=== PATIENT | female | born 1950 | race Caucasian/White ===

== ENCOUNTER 2022-09-09 00:19 | Day surgery (SDC) | payer MEDICARE, OTHER, SELFPAY ==
--- NOTE | 2022-09-02 13:11 | PC.NURSE ---
Report to the Outpatient Waiting Room, entrance under the green pavilion located off [address], at time __929 on date . Planned Procedure Time: . Time changes happen often and if your time is changed the preop area will call you the afternoon before. - You and your visitor will be asked to self-screen and do not enter if you have any COVID symptoms. - Only one visitor is requested with a max of two and NO children visitors are allowed at this time. - The patient visitor may be requested to leave or wait in car when not with patient due to distancing restrictions. - A mask is optional within the hospital at this time. Patients may have clear liquids (water, carbonated beverages, clear teas, apple juice) until 3 hours prior to surgery with a maximum of 20 ounces. - No food from midnight until time of surgery - Infants may have breast milk until 4 hours before surgery, infant formula 6 hours prior to surgery. - Children will be allowed to drink immediately following surgery. If applicable, please bring a bottle or sippy cup to assist with drinking. Juice, water, soda, and popsicles are readily available. For infants on formula, please bring formula the day of surgery. Pacifiers are allowed. LIGHT BREAKFAST Take the following medications with a SIP of water the morning of surgery: ___ALL ROUTINE MORNING MEDICATIONS. MAY REMAIN ON PLAVIX PER DR MARLOW DO NOT STOP ANY OF YOUR OTHER PRESCRIPTION MEDICATIONS PRIOR TO SURGERY ?EXCEPT THE FOLLOWING Medications to discontinue per physician Date to take last dose Please no make-up, nail pashto, hairspray, perfume, deodorant, or body powder the day of surgery. No jewelry (including any body piercings) or valuables the day of surgery, leave them at home. Please take a shower or bath the night before, or the morning of, surgery with an antibacterial soap. Wear comfortable, loose fitting clothing. Children are encouraged to wear pajamas. - Jewelry must be removed prior to entering the operating room. Rings and piercings that are not removed may be cut off. - The hospital will not accept responsibility for valuables. - Please leave all valuables, including medications, at home the day of surgery. If you are going home after surgery, a licensed boom truck driver must drive you home. - NO public transportation without another adult if you receive anesthesia. - We recommend that an adult stay with you for 24 hours following discharge. - We also recommend that you do not drive, make important decision, drink alcoholic beverages, or take any drugs that were not prescribed by your health care provider for at least 24 hours after your discharge time. Follow any additional instructions given to you from your surgeon. If you or anyone in your household have experienced Covid symptoms in the past week, please notify your surgeon or the nurse liaison at the phone number below for possible testing. Telephone instructions given to __Patient and asked if any additional questions and then verbalized understanding. Patient advised to call surgeon office or pre surgery nurse liaison [phone] if any additional questions.
[2022-09-02 13:16] VITALS: BMI 36.8
--- NOTE | 2022-09-09 07:44 | WPDHPUPDATE1 ---
History and Physical Update Update Date/Time: 09/09/22 07:44 History and Physical has been reviewed, including an updated exam of the patient. There are NO changes in the patient's condition. Risks, benefits, and alternatives have been discussed and questions answered. Patient agrees to proceed with procedure.
[2022-09-09 09:58] VITALS: BP 96/73; PULSE 71; RESP 16; TEMP 36.7; O2SAT 100
[2022-09-09 10:20] VITALS: BP 223/98; PULSE 78; RESP 20; O2SAT 97
[2022-09-09 10:30] VITALS: BP 239/103; PULSE 78; RESP 20; O2SAT 96
[2022-09-09] MEDS: LIDO 1%/EPINEPHRINE 1:100,000 20 ML VIAL 5 ML INFILTRATE (10:35)
[2022-09-09 10:40] VITALS: BP 210/94; PULSE 78; RESP 20; O2SAT 95
[2022-09-09 10:50] VITALS: BP 222/102; PULSE 79; RESP 18; O2SAT 95
[2022-09-09 11:00] VITALS: PULSE 80; RESP 20
--- NOTE | 2022-09-09 11:02 | W.PM.PROC2 ---
Procedure Note - Detailed Date of Procedure 09/09/22 Pre-op Diagnosis bilat carpal tunnel syndrome Post-op Diagnosis Same Procedure Performed Bilateral open carpal tunnel release Surgeon Ky Sims MD Anesthesia Local Description of Procedure in the holding area the patient consented to the marking over both carpal tunnels. He was placed supine on the operating table and extremities were prepped on separate hand tables. The time-out was held and confirmed. The 2 sites were marked for the actual incision line. Each 1 was then infiltrated with 1% lidocaine with epinephrine. Surgery was begun on the left with the elevation of tourniquet to 250 mmHg. Incision was made in the palm and carried bluntly through the subcutaneous tissue to the palmar aponeurosis. This was divided with blunt and sharp dissection with scissors and the transverse carpal retinaculum was identified and incised with a 15. Blade. Under 3 point retraction the ligament was divided distally and proximally to complete the release. No unusual anatomy was noted. The skin was closed with interrupted 4-0 nylon suture. The usual bandage was applied and the tourniquet was released. Attention was then turned to the right upper extremity. The site was marked for the incision and the tourniquet inflated to 250 mmHg. The incision was made as marked and dissection was carried bluntly through the subcutaneous tissue to the palmar fascia. This and the transverse retinaculum were incised with a 15. Blade. Under 3 point retraction the ligament was divided distally and proximally to completely release it . No unusual anatomy was noted. Skin was closed with interrupted 4-0 nylon suture.. The patient was discharged from the operating room stable condition. No prescriptions were sent she has ample tramadol at home. Tourniquet Time 13 Drains No Packing No Pathology None sent Complications No immediate complications Condition Stable Disposition Same day
== END 2022-09-09 11:34 | disposition home or self-care (01) ==
PROVIDERS: PCP Physician Assistant Medical; Visit Provider Plastic Surgery
PROC: (CPT 64721; principal; 2022-09-09 10:30)
DX: G56.03 Carpal tunnel syndrome, bilateral upper limbs (principal)
CPT/HCPCS: 64721; A9270

== ENCOUNTER 2024-06-27 15:03 | Outpatient (CLI) | payer MEDICARE, OTHER, SELFPAY ==
--- NOTE | ~2024-06-27 | CT_ITS ---
EXAMINATION: CT abdomen pelvis wo con DATE: 06/27/2024 15:26 INDICATION: Calculus of kidney. TECHNIQUE: Computed tomography (CT) of the abdomen and pelvis was performed without intravenous contr ast. Automated exposure control and iterative reconstruction technique were employed. The dose-length product was 1029.11 mGy-cm. COMPARISON: Abdomen radiographs 06/26/2024 FINDINGS: The visualized portions of lung bases demonstrate mild atelectasis. No pleural effusion. Th e heart size is normal. No pericardial effusion. There is a small sliding hiatal hernia. There is dif fuse hepatic steatosis. The gallbladder, spleen, pancreas, and adrenal glands are normal. There are c ysts in the kidneys measuring up to 2.6 cm on the left. There is an 8 mm stone in left kidney. There is diverticulosis of the colon without evidence of diverticulitis. There are no dilated loops of kirt l. The appendix is not visualized. There are no pathologically enlarged lymph nodes. There is no free intraperitoneal fluid. There is a phlebolith in the right ovarian vein correlating with the radiogra phic finding. There is a total left hip arthroplasty with healed periprosthetic fracture. There is se dre right hip osteoarthritis. There is severe thoracic and lumbar spondylosis. There is a compressio n fracture of L1 with 1/5 loss of height. There is mild chronic height loss of multiple vertebral bod ies. IMPRESSION: 1. 8 mm nonobstructing left kidney stone. 2. L1 compression fracture, likely subacute or chronic. Reviewed, dictated and finalized at location [facility]
== END 2024-06-27 15:04 | disposition home or self-care (01) ==
PROVIDERS: PCP Physician Assistant Medical; Visit Provider Physician Assistant Medical
DX: N20.0 Calculus of kidney (principal); S32.010A Wedge compression fracture of first lumbar vertebra, initial encounter for closed fracture; X58.XXXA Exposure to other specified factors, initial encounter
CPT/HCPCS: 74176

== ENCOUNTER 2024-12-25 08:38 | Outpatient (CLI) | payer MEDICARE, OTHER, SELFPAY ==
--- NOTE | ~2024-12-25 | CT_ITS ---
Procedure: CT humerus RT w con Ordering provider: Shelby Alonzo, History: . M89.9 - Disorder of bone, unspecified . Comparison: None. Technique: Thin slice axial CT of the IV contrast was given. Sagittal and coronal reformatted images were also obtained and reviewed. Radiation reduction technique utilized. The dose-length product was 664.47 mGy-cm. 100 mL Omnipaque 350 was given IV. Findings: BONES: No definite fractures seen. JOINT SPACES: Severe osteoarthritic changes of the glenohumeral joint. Severe osteoarthritic changes of the acromioclavicular joint. SOFT TISSUES: Synovial chondromatosis is seen inferior to the humeral head laterally. Clinical correl ation and follow-up advised. IMPRESSION: No fracture or dislocation. Synovial chondromatosis. Severe osteoarthritic changes of the glenohumeral and acromioclavicular joint. Reviewed, dictated and finalized at location A.
--- OUTSIDE RECORDS SUMMARY | 2024-12-25 08:50 | XMS_ITS | Clinical Summary ---
Author Organization [facility] Address [address] [place] [address] Care Team Providers Care Light Truck Driver Name Role Phone Hector Dick MD Primary Care Provider [phone] Fabiana Bean Unavailable [phone] Allergies No known active allergies Medications clopidogrel (PLAVIX) 75 mg tabletIndications:C erebral Thromboembolism Prevention Take 1 tablet (75 mg total) by mouth nightly 1 9 Active meclizine (ANTIVERT) 25 mg tabletIndications:V ertigo Take 1 tablet (25 mg total) by mouth 3 (three) times a day as needed for dizziness 0 9 Active rosuvastatin (CRESTOR) 5 mg tabletIndications:h yperlipidemia Take 1 tablet (5 mg total) by mouth every other day 1 9 Active cyanocobalamin/foli c acid (VITAMIN F45-ZUUKS ACID) 1,000-400 mcg tablet, sublingualIndicatio ns:Vitamin Deficiency Prevention Place 2,500 mcg under the tongue route salesperson before breakfast Active cholecalciferol (VITAMIN D-3) 3,000 unit tabletIndications:V itamin D Deficiency Take 0.6667 tablets (2,000 Units total) by mouth route salesperson before breakfast 0 Active metoprolol XL (TOPROL-XL) 25 mg extended release tablet Take 1 tablet (25 mg total) by mouth daily 2 Active celecoxib (CeleBREX) 200 mg capsule Take 1 capsule (200 mg total) by mouth daily 4 Active HYDROcodone-acetami nophen (NORCO) 5-325 mg per tabletIndications:P ain Take 1-2 tablets by mouth every 4 (four) hours as needed for pain 40 tablet 4 Active Active Problems Problem Noted Date Diagnosed Date Orthopedic aftercare 01/07/2024 Complex tear of medial menis cus of left knee as current injury 12/15/2023 Acute internal derangement of left knee 11/22/19 24 Dyspnea on exertion 05/18/2022 Ectopic atrial tachycardia 05/18/2022 Back complaints 06/02/2021 Carotid artery disease 06/02/2021 Sciatica 03/11/2021 Failure of left total hip arthroplasty Overview (09/27/2020): Added automatically from request for surgery [id number] Status post total right knee replacement 020 Primary osteoarthritis of right knee 09/08/2019 Overview (09/08/2019): Added automatically from request for surgery [id number] Ischemic stroke 10/23/2018 Dyslipidemia 01/31/2018 Obesity (BMI 30-39.9) 01/31/2018 Palpitation 01/31/2018 Low back pain 03/26/2015 Resolved Problems Problem Noted Date Diagnosed Date Resolved Date Status post total hip replacement, right 03/26/2020 06/26/2022 Encounters Date Type Department Care Team Description 11/08/2024 9:30 AM CDT Office Visit [facility] Medicine [address] [place] [id number] Faraz Villegas MD Primary osteoarthritis of left knee (Primary Dx) from Last 3 Months Immunizations Immunization Administration Dates Next Due Influenza, Quadrivalent, Conchis l Culture-based MDCK, Preservative Free, Antibiotic Free, Intramuscular 04/16/2017 Influenza, Trivalent, Preservative Free, Intramu scular 04/11/2014 Moderna SARS-CoV-2 Monovalent Vaccination (12+ Y RS) 09/05/2020,08/08/2020 Surgical History Surgery Date Site/Laterality Comments TOTAL HIP ARTHROPLASTY 07/12/2009 - 07/11/2010 Left Hip Replacement - (Added by TW Conv) replaced broken hip replacement from 2007 HYSTERECTOMY 07/12/2015 - 07/11/2016 LAMINECTOMY 07/12/2017 - 07/11/2018 decompression lower back JOINT REPLACEMENT 07/12/2020 - 07/11/2021 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 TOTAL KNEE 07/12/2020 - 07/11/2021 Right SPINE SURGERY 07/12/2015 - 07/11/2016 VARICOSE VEIN SURGERY 07/12/1999 - 07/11/2000 Right Medical History Medical History Date Comments Arthritis Stroke (HCC) 10/2018 no residual from stroke - TIA Obesity Motion sickness PONV (postoperative nausea and vomiting) Arrhythmia Palpitations Family History Medical History Relation Name Comments Cancer Brother Mj salazar Hypertension Brother Mj salazar Arthritis Father Ky Heart disease Father Ky Family history of cardiac disorder - (Added by TW Conv) Arthritis Mother Jodi Diabetes Mother Jodi Family history of diabetes mellitus - (Added by TW Conv) Heart disease Mother Jodi Hypertension Mother Jodi Family history of hypertension - (Added by TW Conv) Relation Name Status Comments Brother Mj salazar Father [place] Mother Jodi Social History Tobacco Use Types Packs/Day Years Used Date Smoking Tobacco: Never Smokeless Tobacco: Never Tobacco Cessation:Counseling Given: Not Answered Alcohol Use Standard Drinks/Week Comments Not Currently 0 (1 standard drink = 0.6 oz pur e alcohol) AUDIT-C Answer Date Recorded Q1: How often do you have a drink containing alcohol? Never 12/23/2023 Q2: How many drinks containi ng alcohol do you have on a typical day when you are drinking? Patient does not drink Q3: How often do you have si x or more drinks on one occasion? Never 12/23/2023 Overall Financial Resource Strain (CARDIA) Answe r Date Recorded Difficulty of Paying Living Expenses Patient dec lined 04/18/2019 Hunger Vital Sign Answer Date Recorded Worried About Running Out of Food in the Last Ye ar Patient declined 04/18/2019 Ran Out of Food in the Last Year Patient decline d 04/18/2019 PRAPARE - Transportation Answer Date Re corded Lack of Transportation (Medical) Patient decline d 04/18/2019 Lack of Transportation (Non-Medical) Patient dec lined 04/18/2019 Personal Safety Answer Date Recorded Have you ever been in or are you currently in a harmful physical or emotional relationship or is someone making you feel afraid or unsafe? 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 Gender Identity Not on file Sexual Orientation Not on file Occupation Industry Job Start Date Job End Date retired Not on file Not on file Not on file Obstetrics History Last Filed Vital Signs Vital Sign Reading Time Taken Comments Blood Pressure 137/67 12/23/2023 3:10 PM CDT Pulse 63 12/23/2023 3:10 PM CDT Temperature 36.2 C (97.1 F) 12/23/2023 2:40 PM CDT Respiratory Rate 18 12/23/2023 3:10 PM CDT Oxygen Saturation 100% 12/23/2023 3:10 PM CDT Inhaled Oxygen Concentration - - Weight 106.6 kg (235 lb) 11/08/2024 9:14 AM CDT Height 167.6 cm (5' 6) 11/08/2024 9:14 AM CDT Body Mass Index 37.93 11/08/2024 9:14 AM CDT Plan of Treatment Health Maintenance Due Date Last Done Comments Colon Cancer Screening-Colonoscopy 1950 Depression Screening 1950 Hepatitis C Screening 1950 DTaP/Tdap/Td Vaccine (1 - Tdap) 1963 Hepatitis B Screening 1970 Pneumococcal vaccine 65+ (1 of 1 - PCV) 2002 Zoster Vaccine (1 of 2) 2002 Well Visit 65+ 2017 Covid-19 Vaccine (3 - 2023-2 5 season) 2024 09/05/2020, 08/08/2020 Fall Risk Assessment 12/22/2024 12/23/2023 Influenza Vaccine (Season Ended) 2025 04/16/20 17, 04/11/2014 Breast Cancer Screening-Mammogram 09/20/2025 09/20/2024, 09/20/2024, 09/20/2023, Additional history exists Osteoporosis Screening-Bone Density Scan 08/15/2026 08/15/2024, 12/03/2021 Medical Devices Implanted Type Area Enterprise Integration Architect Device Identifier Shelf Expiration Date Model / Serial / Lot [employer] [id number] Trilogy 6.5mm 20mm Self Tap Screw Bone - [id number] Implanted:Qty: 1 on 11/06/2020 by Saqib Valle MD at [facility] Left: Hip [employer] [id number] 10/09/2029 [id number] / / [id number] [employer] [id number] Trilogy 6.5mm 20mm Self Tap Screw Bone - [id number] Implanted:Qty: 1 on 11/06/2020 by Saqib Valle MD at [facility] Left: Hip [employer] [id number] 10/09/2029 [id number] / / [id number] [employer] [id number] 46mm 2 Mobility Hip G Liner Acetabular - [id number] Implanted:Qty: 1 on 11/06/2020 by Saqib Valle MD at [facility] Left: Hip [employer] [id number] 02/25/2030 [id number] / / [id number] [employer] Pha0-1202 Profemur 10.6mm 28mm Kit N Modular Hip Neutral Short Neck Femoral - [id number] Implanted:Qty: 1 on 11/06/2020 by Saqib Valle MD at [facility] Left: Hip [employer] [id number] 12/07/2025 [id number] / / [id number] [employer] [id number] Option Hip Xlong Sleeve Femoral Titanium - [id number] Implanted:Qty: 1 on 11/06/2020 by Saqib Valle MD at [facility] Left: Hip [employer] [id number] 08/18/2027 [id number] / / [id number] [employer] [id number] Option 28mm Neck Sleeve Hip Head Femoral Titanium - [id number] Implanted:Qty: 1 on 11/06/2020 by Saqib Valle MD at [facility] Left: Hip [employer] 02/09/2027 [id number] / / [employer] [id number] 1-4mm Freeze Dried Crushed Graft 30ml Bone Cancellous - [id number] Implanted:Qty: 1 on 11/06/2020 by Saqib Valle MD at [facility] Left: Hip [employer] 08/09/2023 [id number] / / [id number] [employer] [id number] 1-4mm Freeze Dried Crushed Graft 30ml Bone Cancellous - [id number] Implanted:Qty: 1 on 11/06/2020 by Saqib Valle MD at [facility] Left: Hip [employer] 06/14/2023 [id number] / / [id number] [employer] [id number] 58mm Multihole Hip G Hemisphere Offset Shell Acetabular - [id number] Implanted:Qty: 1 on 11/06/2020 by Saqib Valle MD at [facility] Left: Hip [employer] [id number] 08/12/2030 [id number] / / [id number] [employer] [id number] Trilogy 6.5mm 40mm Self Tap Hip Acetabular Cortical Screw Bone - [id number] Implanted:Qty: 1 on 11/06/2020 by Saqib Valle MD at [facility] Left: Hip [employer] [id number] 08/14/2030 [id number] / / [id number] [employer] [id number] Trilogy 6.5mm 40mm Self Tap Hip Acetabular Cortical Screw Bone - [id number] Implanted:Qty: 1 on 11/06/2020 by Saqib Valle MD at [facility] Left: Hip [employer] [id number] 09/10/2030 [id number] / / [id number] [employer] [id number] Trilogy 6.5mm 40mm Self Tap Hip Acetabular Cortical Screw Bone - [id number] Implanted:Qty: 1 on 11/06/2020 by Saqib Valle MD at [facility] Left: Hip [employer] [id number] 08/14/2030 [id number] / / [id number] [employer] [id number] Liner Acetabular Longevity G Od46 Mm Id28 Mm Hip Lumen Sterile Latex Free - [id number] - [id number] Implanted:Qty: 1 on 11/06/2020 by Saqib Valle MD at [facility] Left: Hip [employer] [id number] 08/11/2025 [id number] / [id number] / [id number] Explanted Type Area Enterprise Integration Architect Device Identifier Shelf Expiration Date Model / Serial / Lot [place] Chrome Head 48 Explanted:Qty: 1 on 11/06/2020 by Saqib Valle MD at [facility] Left: Hip [employer] Neck Explanted:Qty: 1 on 11/06/2020 by Saqib Valle MD at [facility] Left: Hip [employer] Procedures Procedure Name Priority Date/Time Associated Diagnosis Comments OR ARTHROCENTESIS ASPIR&/INJ MAJOR JT/BURSA W/O US Routine 11/08/2024 9:30 AM CDT Primary osteoarthritis of left knee from Last 3 Months Results * OR ARTHROCENTESIS ASPIR&/INJ MAJOR JT/BURSA W/O US (11/08/2024 9:30 AM CDT) Narrative Faraz Villegas MD - 11/08/2024 9:30 AM CDT Faraz Villegas MD 11/16/2024 6:40 AM Large Joint (Hip, Knee, Shoulder) Injection: L knee Performed by: Faraz Villegas MD Authorized by: Faraz Villegas MD Large Joint Injection/Aspiration: Consent Given by: Patient Site marked: the procedure site was marked Timeout: prior to procedure the correct patient, procedure, and site was verified Verbal consent obtained: Yes Written consent obtained: No Supporting Documentation: Indications: Pain Procedure Details: Location: Knee Site: L knee Prep: patient was prepped using a clean technique Needle Size: 22 G Ultrasound guided: No Medications: 1 mL lidocaine 10 mg/mL (1 %); 40 mg triamcinolone 40 mg/mL Patient tolerance: Patient tolerated the procedure well with no immediate complications Faraz Villegas MD IN CLINIC/BEDSIDE [facility] Final Result from Last 3 Months Insurance [facility]ICARE [facility] MEDICARE [place] MEDICARE [employer] Advance Directives For more information, please contact: [phone] * Full Code (Latest Code Status on File) Date Activated Date Inactivated Comments 11/06/2020 12:41 PM 11/07/2020 4:38 PM Care Teams Light Truck Driver Relationship Specialty Start Date End Date Hector Dick MD [address] [place] [address] PCP - General Internal Medicine 08/19/20 Fabiana Bean PA [address] [facility] [place] [address] Physician Melter Supervisor Oxygen Furnace Orthopedic Surgery 12/23/23
--- OUTSIDE RECORDS SUMMARY | 2024-12-25 08:50 | XMS_ITS | Referral Summary ---
Author Organization [facility] Address [address] [place] [phone] Care Team Providers Care Emergency Veterinarian Name Role Phone Hector Dick MD Primary Care Provider [phone] Fabiana Bean Unavailable [phone] Encounters Date Type Department Care Team Description 11/08/2024 9:30 AM CDT Office Visit [facility] Orthopedics and Sports Medicine [address] [place] [phone] Faraz Villegas MD Primary osteoarthritis of left knee (Primary Dx) from Last 3 Months Allergies No known active allergies Medications clopidogrel [...] 1 9 Active cyanocobalamin/foli c acid (VITAMIN E89-ITQUW ACID) 1,000-400 mcg tablet, sublingualIndicatio ns:Vitamin Deficiency Prevention Place 2,500 mcg under the tongue police academy instructor before breakfast Active cholecalciferol (VITAMIN D-3) 3,000 unit tabletIndications:V itamin D Deficiency Take 0.6667 tablets (2,000 Units total) by mouth police academy instructor before breakfast 0 Active metoprolol XL (TOPROL-XL) [...] 03/11/2021 Failure of left total hip arthroplasty 1 Overview (09/27/2020): Added automatically from request for surgery [id number] Status post total right knee replacement 020 Primary osteoarthritis of right knee 09/08/2019 Overview (09/08/2019): Added automatically from request for surgery [id number] Ischemic stroke 10/23/2018 Dyslipidemia 01/31/2018 Obesity (BMI 30-39.9) 01/31/2018 Palpitation 01/31/2018 Low back pain 03/26/2015 Resolved Problems Problem Noted Date Diagnosed Date Resolved Date Status post total hip replacement, right 03/26/2020 06/26/2022 Immunizations Immunization Administration Dates Next Due Influenza, Quadrivalent, Conchis l Culture-based MDCK, Preservative Free, Antibiotic Free, Intramuscular 04/16/2017 Influenza, Trivalent, Preservative Free, Intramu scular 04/11/2014 Moderna SARS-CoV-2 Monovalent Vaccination (12+ Y RS) 09/05/2020,08/08/2020 Social History Tobacco Use Types Packs/Day Years [...] on file 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 Gender Identity Not on file Sexual Orientation Not on file Occupation Industry Job Start Date Job End Date retired Not on file Not on file Not on file Last Filed Vital Signs Vital Sign Reading [...] 11/08/2024 9:14 AM CDT Plan of Treatment Not on file Medical Devices Implanted Type Area Doctor Of Nursing Practice Device Identifier Shelf Expiration Date Model / Serial / Lot [employer] [id number] Trilogy 6.5mm 20mm Self Tap Screw Bone - [id number] Implanted:Qty: 1 on 11/06/2020 by Saqib Valle MD at [facility] Left: Hip [employer] [id number] 10/09/2029 [id number] / / [id number] [employer] [id number] Trilogy 6.5mm 20mm Self Tap Screw Bone - [id number] Implanted:Qty: 1 on 11/06/2020 by Saqib Valle MD at [facility] Left: Hip [employer] [id number] 10/09/2029 [id number] / / [id number] [employer] [id number] G7 46mm 2 Mobility Hip G Liner Acetabular - [id number] Implanted:Qty: 1 on 11/06/2020 by Saqib Valle MD at [facility] Left: Hip [employer] [id number] 02/25/2030 [id number] / / [id number] [employer] [id number] Profemur 10.6mm 28mm Kit N Modular Hip Neutral Short Neck Femoral - [id number] Implanted:Qty: 1 on 11/06/2020 by Saqib Valle MD at [facility] Left: Hip [employer] [id number] 12/07/2025 [id number] / / [id number] [employer] [id number] Option Hip Xlong Sleeve Femoral Titanium - [id number] Implanted:Qty: 1 on 11/06/2020 by Saqib Valle MD at [facility] Left: Hip [employer] [id number] 08/18/2027 [id number] / / [id number] [employer] [id number] Option 28mm Neck Sleeve Hip Head Femoral Titanium - [id number] Implanted:Qty: 1 on 11/06/2020 by Saqib Valle MD at [facility] Left: Hip [employer] 02/09/2027 [id number] / / Joint [employer] [id number] 1-4mm Freeze Dried Crushed Graft 30ml Bone Cancellous - [id number] Implanted:Qty: 1 on 11/06/2020 by Saqib Valle MD at [facility] Left: Hip [employer] 08/09/2023 [id number] / / [id number] Joint [employer] [id number] 1-4mm Freeze Dried Crushed Graft 30ml Bone Cancellous - [id number] Implanted:Qty: 1 on 11/06/2020 by Saqib Valle MD at [facility] Left: Hip [employer] 06/14/2023 [id number] / / [id number] [employer] [id number] 58mm Multihole Hip G Hemisphere Offset Shell Acetabular - [id number] Implanted:Qty: 1 on 11/06/2020 by Saqib Valle MD at [facility] Left: Hip [employer] [id number] 08/12/2030 [id number] / / [id number] [employer] [id number] Trilogy 6.5mm 40mm Self Tap Hip Acetabular Cortical Screw Bone - [id number] Implanted:Qty: 1 on 11/06/2020 by Saqib Valle MD at [facility] Left: Hip [employer] [id number] 08/14/2030 [id number] / / [id number] [employer] [id number] Trilogy 6.5mm 40mm Self Tap Hip Acetabular Cortical Screw Bone - [id number] Implanted:Qty: 1 on 11/06/2020 by Saqib Valle MD at [facility] Left: Hip [employer] [id number] 09/10/2030 [id number] / / [id number] [employer] [id number] Trilogy 6.5mm 40mm Self Tap Hip Acetabular Cortical Screw Bone - [id number] Implanted:Qty: 1 on 11/06/2020 by Saqib Valle MD at [facility] Left: Hip [employer] [id number] 08/14/2030 [id number] / / [id number] [employer] [id number] Liner Acetabular Longevity G Od46 Mm Id28 Mm Hip Lumen Sterile Latex Free - [id number] - [id number] Implanted:Qty: 1 on 11/06/2020 by Saqib Valle MD at [facility] Left: Hip [employer] [id number] 08/11/2025 [id number] / [id number] / [id number] Explanted Type Area Doctor Of Nursing Practice Device Identifier Shelf Expiration Date Model / Serial / Lot Dunellen Chrome Head 48 Explanted:Qty: 1 on 11/06/2020 by Saqib Valle MD at [facility] Left: Hip [employer] Neck Explanted:Qty: 1 on 11/06/2020 by Saqib Valle MD at [facility] Left: Hip [employer] Procedures Procedure Name Priority Date/Time Associated Diagnosis Comments [place] ARTHROCENTESIS ASPIR&/INJ MAJOR JT/BURSA W/O US Routine 11/08/2024 9:30 AM CDT Primary osteoarthritis of left knee from Last 3 Months Results * [place] ARTHROCENTESIS ASPIR&/INJ MAJOR JT/BURSA W/O US (11/08/2024 [...] the procedure well with no immediate complications Faarz Villegas MD IN CLINIC/BEDSIDE [facility] Final Result from Last 3 Months Insurance MEDICARE [facility] MEDICARE [employer] [place] [employer] [place] Advance Directives For more information, please contact: [phone] * Full Code (Latest Code Status on File) Date Activated Date Inactivated Comments 11/06/2020 12:41 PM 11/07/2020 4:38 PM Care Teams Emergency Veterinarian Relationship Specialty Start Date End Date Hector Dick MD [address] [place] [address] PCP - General Internal Medicine 08/19/20 Fabiana Bean PA [address] [facility] [address] [address] Physician Cardiology Nurse Orthopedic Surgery 12/23/23
--- OUTSIDE RECORDS SUMMARY | 2024-12-25 08:50 | XMS_ITS | Encounter Summary ---
Author Organization [facility] Address [address] [place] [address] Care Team Providers Care Au Pair Name Role Phone Hector Dick MD Primary Care Provider Fabiana Bean Unavailable [phone] Encounter Details Date Type Department Care Team (Late st Contact Info) Description 03/10/2021 Telephone [facility] Radiology [address] [facility] [address] [place] [address] Sri Oconnell, RT Social History Tobacco Use Types Packs/Day Years Used Date Smoking Tobacco: Never Smokeless Tobacco: Never Alcohol Use Standard Drinks/Week Comments Not Currently 0 (1 standard drink = 0.6 oz pur e alcohol) AUDIT-C Answer Date Recorded Q1: How often do you have a drink containing alc ohol? 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 Gender Identity Not on file Sexual Orientation Not on file Occupation Industry Job Start Date Job End Date retired Not on file Not on file Not on file documented as of this encounter Plan of Treatment Not on file documented as of this encounter Visit Diagnoses Not on filedocumented in this encounter Care Teams Au Pair Relationship Specialty Start Date End Date Hector Dick MD [facility] [place] [address] PCP - General Internal Medicine 08/19/20 Fabiana Bean PA [address] [facility] [address] [place] [address] [place] [address] Physician Ux Visual Designer Orthopedic Surgery 12/23/23 documented as of this encounter
--- OUTSIDE RECORDS SUMMARY | 2024-12-25 08:50 | XMS_ITS | Clinical Summary ---
Author Organization [facility] Address [address] [facility] [address] 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 Gender Identity Not on file Sexual Orientation Not on file Plan of Treatment Health Maintenance Due Date Last Done Comments DTAP/TDAP/TD VACCINES (1 - Tdap) 1971 COLORECTAL SCREENING 1997 Colorectal Cancer Screening 1997 FIT-DNA Q 3 years 1997 FIT/FOBT Q 1 year 1997 Flex Sig/CT Colonography Q 5 years 1997 PNEUMOCOCCAL VACCINE 50+ YEA RS (1 of 1 - PCV) 2002 ZOSTER VACCINE (1 of 2) 2002 INFLUENZA VACCINE (#1) 2024 04/16/2017, 2013 COVID-19 Vaccine (3 - 2023-2 5 season) 2024 09/05/2020, 08/08/2020 BREAST CANCER SCREENING 09/19/2024 09/20/19 24, 09/20/2023, 05/06/2022, Additional history exists OSTEOPOROSIS SCREENING 12/03/2026 12/03/2021, 2021 RSV VACCINE (60+ or ) (1 - 1-dose 75+ series) 2027
[2024-12-25 09:02] LABS: Estimated Glomerular Filt Rate > 60
== END 2024-12-25 08:39 | disposition home or self-care (01) ==
PROVIDERS: PCP Physician Assistant Medical; Visit Provider Physician Assistant Medical
DX: M67.211 Synovial hypertrophy, not elsewhere classified, right shoulder (principal); M19.011 Primary osteoarthritis, right shoulder
CPT/HCPCS: 73201; Q9967

== ENCOUNTER 2025-05-18 10:03 | Outpatient (CLI) | payer MEDICARE, OTHER, SELFPAY ==
--- NOTE | ~2025-05-18 | XR_ITS ---
EXAMINATION: XR shoulder RT min 2V, 05/18/2025 10:21 OIL WELL CABLE TOOL OPERATOR HISTORY: CHRONIC RT SHOULDER PAIN W/ LACK OF MOTION COMPARISON: No comparisons available. Findings: No acute fracture or malalignment. There are severe degenerative changes noted with a large calcified loose bodies the largest 2 x 2.5 cm with a large joint effusion suspected. Soft tissues unremarkable. Impression: Severe degenerative changes. MRI is recommended Reviewed, dictated and finalized at location P. WELL CABLE TOOL OPERATOR Impression: Severe degenerative changes. MRI is recommended
--- OUTSIDE RECORDS SUMMARY | 2025-05-18 10:48 | XMS_ITS | Clinical Summary ---
Author Organization [facility] Address [address] [place] [address] Care Team Providers Care Rn Home Health Name Role Phone Emery Callejas MD, Robert Unavailable [phone] Wendy Hurst- Unavailable [phone] Yadira Danielle PA-C Primary Care Provider [phone] Allergies No known active allergies Medications Cyanocobalamin (VITAMIN B 12 OR)Indications:Vit alford and/or Mineral Deficiency Take 1 tablet by mouth daily. Indications: Vitamin and/or Mineral Deficiency 03/29/20 20 Active clopidogrel 75 MG tablet Take 1 tablet (75 mg total) by mouth daily. 90 tablet 10/25/19 19 Active meclizine 25 MG tabletIndications: Dizziness Take 1 tablet (25 mg total) by mouth 3 (three) times daily as needed for Dizziness. Indications: Dizziness 0 01/24/20 19 Active rosuvastatin 5 MG tabletIndications: Blood Cholesterol Abnormal Take 1 tablet (5 mg total) by mouth every other day. Indications: Blood Cholesterol Abnormal 1 02/11/20 19 Active celecoxib (CELEBREX) 200 MG capsule Take 1 capsule (200 mg total) by mouth daily. Active Calcium Carb-Cholecalcifer ol (LIQUID CALCIUM WITH D3) 600-25 MG-MCG Cap Take 1 tablet by mouth 2 (two) times a day. Active metoprolol succinate ER (TOPROL-XL) 50 MG 24 hr tablet Take 1 tablet by mouth once daily 90 tablet 3 10/04/19 Active ezetimibe (ZETIA) 10 MG tabletIndications: Mixed hyperlipidemia Take 1 tablet by mouth once daily 90 tablet 04/09/20 25 Active Active Problems Problem Noted Date Diagnosed Date Lumbar stenosis 10/12/2024 Dyspnea on exertion 05/18/2022 Ectopic atrial tachycardia 05/18/2022 Back complaints 06/02/2021 Carotid artery disease 06/02/2021 Low back pain 03/11/2021 Sciatica 03/11/2021 History of revision of total replacement of left hip joint 02/11/2021 Failure of left total hip arthroplasty Overview (06/02/2021): Added automatically from request for surgery [id number] Status post total right knee replacement 020 History of revision of total replacement of righ t hip joint 03/26/2020 Primary osteoarthritis of right knee 09/08/2019 Overview (06/02/2021): Added automatically from request for surgery [id number] Ischemic stroke 10/23/2018 Palpitation 01/31/2018 Obesity (BMI 30-39.9) 01/31/2018 Dyslipidemia 01/31/2018 Resolved Problems Problem Noted Date Diagnosed Date Resolved Date TIA (transient ischemic attack) 10/21/2018 03/20/2020 Immunizations Immunization Administration Dates Next Due MODERNA COVID-19 (12+) MRNA, LNP-S, PF, 100 MCG/ 0.5 ML DOSE 09/05/2020,08/08/2020 Family History Medical History Relation Comments No Known Problems Daughter 1 No Known Problems Daughter 2 Aneurysm Father CABG Father Valve Disease Father CABG Mother Cancer Mother No Known Problems Son Breast Cancer Neg Hx Relation Status Comments Daughter 1 Alive Daughter 2 Alive Father 2011 Mother Son Alive Social History Tobacco Use Types Packs/Day Years Used Date Smoking Tobacco: Never Smokeless Tobacco: Never Tobacco Cessation:Counseling Given: Yes Alcohol Use Standard Drinks/Week Comments No 0 (1 standard drink = 0.6 oz pur e alcohol) PHQ-2 Answer Date Recorded PHQ-2 Score - If the patient scores above 3, please move on to questions 3-9 0 02/26/2020 Comments No Sex and Gender Information Value Date Recorded Sex Assigned at Female 09/18/2024 9:42 AM CDT Legal Sex Female 8:20 AM CDT Gender Identity Not on file Sexual Orientation Not on file Last Filed Vital Signs Vital Sign Reading Time Taken Comments Blood Pressure 128/88 09/18/2024 8:48 AM CDT Pulse 68 09/18/2024 8:44 AM CDT Temperature 36.6 C (97.9 F) 11/07/2023 7:29 PM CDT Respiratory Rate 16 09/18/2024 8:44 AM CDT Oxygen Saturation 96% 09/18/2024 8:44 AM CDT Inhaled Oxygen Concentration - - Weight 112.2 kg (247 lb 6.4 oz) 09/18/2024 8:44 AM CDT Height 168.3 cm (5' 6.25) 09/18/2024 8:44 AM CD T Body Mass Index 39.63 09/18/2024 8:44 AM CDT Plan of Treatment Upcoming Encounters Date Type Department Care Team (Late st Contact Info) Description 09/17/2025 9:30 AM CDT Office Visit [facility] [place] [address] Wendy Hurst, ANP- [address] [phone] Health Maintenance Due Date Last Done Comments Colorectal Cancer Screening Colonoscopy (10 Years) 1952 Hepatitis C 1970 DTaP, Tdap and Td Vaccines (1 - Tdap) 1971 Pneumococcal Vaccine: 50+ Years (1 of 1 - PCV) 2002 Zoster Vaccines (1 of 2) 2002 Annual Medicare Wellness Visit 2017 PHQ-2 (Physician Tillman) 07/12/2024 COVID-19 Vaccine ( season) 2025 05/12/2021, 09/05/2020, 08/08/2020 Influenza Adult (#1) 2025 04/22/2021, 04/16/2017, 04/11/2014 Mammogram Screening 09/20/2026 09/20/2024, 09/20/2023, 05/06/2022, Additional history exists RSV Immunization or 60+ Years (1 - 1-dose 75+ series) 2027 Dexa Scan (General) Completed 08/15/2024, 2 Hepatitis A Vaccines Aged Out No long er eligible based on patient's age to complete this topic Meningococcal B Vaccine Aged Out No l onger eligible based on patient's age to complete this topic Meningococcal Vaccine Aged Out No kait yulisa eligible based on patient's age to complete this topic RSV Immunizations Under 20 Months Aged Out No longer eligible based on patient's age to complete this topic Medical Devices Implanted Type Area Filter Tank Tender Helper Head Device Identifier Shelf Expiration Date Model / Serial / Lot Cement Full Dose - [id number] Implanted:Qty: 2 on 03/26/2020 by Christopher Duran MD at [facility] Cement Implant Right: Knee [employer]ONA [employer]IN 10/09/2021 [id number] / / [id number] Persona Natural Tibia Cemented Implanted:Qty: 1 on 03/26/2020 by Christopher Duran MD at [facility] Knee Components Right: Tibia [employer] [id number] 08/11/2029 03-0574-027- 02 / / [id number] Persona Femur Cemented Posterior Stabilized Narrow Implanted:Qty: 1 on 03/26/2020 by Christopher Duran MD at [facility] Knee Components Right: Femur [employer] [id number] 07/11/2029 [id number] / / [id number] Patella Charles Persona All Poly 32mm - [id number] Implanted:Qty: 1 on 03/26/2020 by Christopher Duran MD at [facility] Knee Components Right: Patella [employer] [id number] 01/22/2028 [id number] / / [id number] Persona Articular Surface Fixed Bearing Posteriorstabili zed Implanted:Qty: 1 on 03/26/2020 by Christopher Duran MD at [facility] [employer] Knee Components Right: Tibia [employer] 10/09/2021 [id number] / / [id number] Procedures Procedure Name Priority Date/Time Associated Diagnosis Comments MG SCREENING W JOE STANLEY DIGI Routine 09/20/2024 11:05 AM CDT Visit for screening mammogram BONE DENSITY/DEXA Routine 08/15/2024 9:5 0 AM MONORAIL CRANE OPERATOR Other primary ovarian failure from Last 3 Months or Most Recently Relevant to Health Maintenance Results * MG SCREENING W JOE STANLEY DIGI (09/20/2024 11:05 AM CDT) Anatomical Region Laterality Modality Breast Bilateral Mammography 09/20/2024 4:58 PM CDT Impressions 09/20/2024 5:00 PM CDT ===== IMPRESSION: ===== 1. Stable mammographic appearance with no new findings to suggest malignancy in either breast. Assessment: ACR BI-RADS 1 - NEGATIVE Recommendation: 1:Routine Screening Bilateral Comments: Ordered By: YADIRA DANIELLE Interpreted By: Roseanna Butler, 09/20/2024 4:58 PM Narrative 09/20/2024 5:00 PM CDT [facility] [address] [place] [address] EXAMINATION: Digital bilateral screening mammogram with 3-D tomosynthesis EXAM DATE/TIME: 09/20/2024 9:47 AM REASON FOR EXAM: screening COMPARISON: 05/06/2022. 09/20/2023 Technique: Digital screening mammography of both breasts was performed in addition to 3-D Tomosynthesis technique. This study was read with the assistance of a computer-aided detection system. Tissue density: The breasts are almost entirely fatty. Findings: There is no new focal asymmetry, dominant mass lesion, area of skin thickening, or cluster of suspicious appearing calcifications in either breast to suggest malignancy. us Yadira Danielle PA-C MAMMO Final Resu lt * BONE DENSITY/DEXA (08/15/2024 9:50 AM MONORAIL CRANE OPERATOR) Anatomical Region Laterality Modality Bone Bone Density 08/15/2024 8:36 PM MONORAIL CRANE OPERATOR Impressions 08/15/2024 8:37 PM MONORAIL CRANE OPERATOR IMPRESSION: WHO Classification: Osteopenia RECOMMENDATIONS: All patients should ensure an adequate intake of dietary calcium and vitamin D. The NOF recommend adults under the age of 50 need 1000 mg of calcium and 400-800 IU of vitamin D daily. Effective therapy for the prevention and treatment of osteoporosis include bisphosphonates. Follow-up: People with diagnosed cases of osteoporosis or at high risk for fracture should have regular bone mineral density test. For patients eligible for Medicare, routine testing is allowed once every 2 years. Testing frequency can be increased to one year for patients who have rapidly progressing disease, those who are receiving or discontinuing medical therapy to restore bone mass, or have additional risk factors. Referred By: YADIRA DANIELLE Interpreted By: Charlie Truong MD, 08/15/2024 8:36 PM Narrative 08/15/2024 8:37 PM MONORAIL CRANE OPERATOR [facility] [address] [facility] [place] [address] EXAMINATION: BONE DENSITY/DEXA INDICATIONS: Other primary ovarian failure. Prior left hip replacement TECHNIQUE: DEXA bone mineral density evaluation was performed in the AP projection over the lumbar spine and both hips utilizing standard imaging techniques. ASSESSMENT: The BMD measured at the AP spine L1-L4 is 1.169 g/cm? with a T-score of 1.1. The BMD measured at the right distal third of forearm is 0.623 g/cm? with a T- score of -1.1. The BMD measured at the right forearm is 0.461 g/cm? with a T-score of -2.0. The BMD measured at the right femoral neck is 0.884 g/cm? with a T-score of 0.3. The BMD measured at the right hip is 1.024 g/cm? with a T-score of 0.7. FRAX 10-year fracture risk: Not reported as all T scores for the visualized hip are above -1.0. Procedure Note Charlie Truong MD - 08/15/2024 [facility] [address] [place] [address] EXAMINATION: BONE DENSITY/DEXA INDICATIONS: Other primary ovarian failure. Prior left hip replacement TECHNIQUE: DEXA bone mineral density evaluation was performed in the APprojection over the lumbar spine and both hips utilizing standard imagingtechniques. ASSESSMENT: The BMD measured at the AP spine L1-L4 is 1.169 g/cm? with a T-score of1.1. The BMD measured at the right distal third of forearm is 0.623 g/cm? witha T- score of -1.1. The BMD measured at the right forearm is 0.461 g/cm? with a T-score of-2.0. The BMD measured at the right femoral neck is 0.884 g/cm? with a T-scoreof 0.3. The BMD measured at the right hip is 1.024 g/cm? with a T-score of 0.7. FRAX 10-year fracture risk: Not reported as all T scores for the visualized hip are above -1.0. IMPRESSION: WHO Classification: Osteopenia RECOMMENDATIONS: All patients should ensure an adequate intake of dietary calcium andvitamin D. The NOF recommend adults under the age of 50 need 1000 mg ofcalcium and 400-800 IU of vitamin D daily. Effective therapy for theprevention and treatment of osteoporosis include bisphosphonates. Follow-up: People with diagnosed cases of osteoporosis or at high risk for fractureshould have regular bone mineral density test. For patients eligible forMedicare, routine testing is allowed once every 2 years. Testing frequencycan be increased to one year for patients who have rapidly progressingdisease, those who are receiving or discontinuing medical therapy torestore bone mass, or have additional risk factors. Referred By: YADIRA DANIELLE Interpreted By: Charlie Truong MD, 08/15/2024 8:36 PM Yadira Danielle PA-C DEXA Final Resu lt from Last 3 Months or Most Recently Relevant to Health Maintenance Insurance [facility]ICARE [facility] MEDICARE [facility] Advance Directives * Full Code (Latest Code Status on File) Date Activated Date Inactivated Comments 03/29/2020 10:33 AM 03/03/2021 8:51 AM * Full Code Date Activated Date Inactivated Comments 03/26/2020 3:50 PM 03/28/2020 12:38 PM Care Teams Rn Home Health Relationship Specialty Start Date End Date Yadira Danielle PA-C [address] [phone] PCP - General NURSE PRACTITIONER 03/16/19 Ky Land MD [employer] Signal Processing Engineer INTERVENTIONAL CARDIOLOGY 11/30/17 Wendy Hurst ANP- [address] [facility] [address] [place] [address] CARDIOVASCULAR DISEASE 11/30/17
--- OUTSIDE RECORDS SUMMARY | 2025-05-18 10:48 | XMS_ITS | Patient Health Record ---
Author Organization [facility] Address [address] [place], [place] [id number] Care Team Providers Care Long Chain Quiller Tender Name Role Phone MARSHAL KU Unavailable [phone] Shelby Guevara Unavailable Unavailable Reason For Referral No Information Medications Medication SIG (Take, Route, Frequency, Duration) Notes Start Date End Date Status Ibuprofen 200 MG Oral Tablet ORAL ibuprofen 200 MG Oral TabletOriginal Medicationibuprofen 200 MG Oral Tablet *Reorder from [employer] for eRx and Interaction Alerts* 11/18/2015 Active Social History Social History Additional Details Category Social Info Options Details Migrated Social History Migrated Social History History of tobacco use : , Smoking Status : Never smoked Plan Of Treatment No Information Insurance Providers Payer Name Payer Address Payer Phone Subscriber Number Group Number Insured Name Patient Relationship to Insured Coverage Start Date Coverage End Date Medicare Part B [place] [address] [facility] [place] [address] [id number] RADHA MOON Self - patient is the insured [place] of [id number] [address] [facility] [address] [id number] RADHA MOON Self - patient is the insured [facility] [address] [place], [place] [id number] RADHA MOON Self - patient is the insured
--- OUTSIDE RECORDS SUMMARY | 2025-05-18 10:48 | XMS_ITS | Encounter Summary ---
Author Organization [facility] Address [address] [place] [address] Care Team Providers Care Nurse Liaison Name Role Phone Hector Dick MD Primary Care Provider [phone] Fabiana Bean Unavailable [phone] Encounter Details Date Type Department Care Team (Late st Contact Info) Description 03/10/2021 Telephone [facility] Radiology [address] [facility] [address] [place] [address] Sri Oconnell, RT Social History [...] file Legal Sex Female 12:56 PM SENIOR INFRASTRUCTURE ARCHITECT Gender Identity Not on file Sexual Orientation Not on file Occupation Industry Job Start Date Job End Date retired Not on file Not on file Not on file documented as of this encounter Plan of Treatment Not on file documented as of this encounter Visit Diagnoses Not on filedocumented in this encounter Care Teams Nurse Liaison Relationship Specialty Start Date End Date Hector Dick MD [facility] [place] [address] PCP - General Internal Medicine 08/19/20 Fabiana Bean PA [address] [place] [address] [place] [address] Physician Clinical Athletic Instructor Orthopedic Surgery 12/23/23 documented as of this encounter
--- OUTSIDE RECORDS SUMMARY | 2025-05-18 10:48 | XMS_ITS | Encounter Summary ---
Author Organization [facility] Address [address] [place] [address] Care Team Providers Care Fagot Maker Name Role Phone Emery Callejas MD, [place] Unavailable [phone] Wendy Hurst [facility] Unavailable [phone] Shelby Alonzo PA-C Primary Care Provider [phone] Encounter Details Date Type Department Care Team (Late st Contact Info) Description 03/26/2020 Prep for Procedure [facility] Pre-Admission Testing [address] [place], [place] [id number] Christopher Duran MD [address] [place] [address] Social History Tobacco Use Types Packs/Day Years Used Date Smoking Tobacco: Never Smokeless Tobacco: Never Alcohol Use Standard Drinks/Week Comments No 0 [...] on file Sexual Orientation Not on file COVID-19 Exposure Response Date Recorded In the last month, have you been in contact with someone who was confirmed or suspected to have Coronavirus / COVID-19? No / Unsure 03/26/2020 7:52 AM CDT documented as of this encounter Functional Status * Question Answer Date of Assessment Author Status Do you have serious difficulty walking or climbing stairs? No 03/26/2020 5:46 PM CDT Ria Figueroa RN A ctive * Question Answer Date of Assessment Author Status Do you have difficulty dressing or bathing? No 03/26/2020 5:46 PM CDT Ria Figueroa RN Active Because of a physical, mental, or emotional condition, do you have difficulty doing errands alone such as visiting a doctor's office or shopping? No 03/26/2020 5:46 PM CDT Ria Figueroa RN Ac tive * RETIRED Are you deaf or do you have serious difficulty hearing Answer Date of Assessment Author Status No 03/26/2020 5:46 PM CDT Activ e * RETIRED Are you blind or do you have serious difficulty seeing, even when wearing glasses? Answer Date of Assessment Author Status No 03/26/2020 5:46 PM CDT Activ e * Do you have serious difficulty walking or climbing stairs? Answer Date of Assessment Author Status No 03/26/2020 5:46 PM CDT Ria Figueroa RN Active * Do you have difficulty dressing or bathing? Answer Date of Assessment Author Status No 03/26/2020 5:46 PM CDT Ria Figueroa RN Active * Because of a physical, mental, or emotional condition, do you have difficulty doing errands alone such as visiting a doctor's office or shopping? Answer Date of Assessment Author Status No 03/26/2020 5:46 PM CDT Ria Figueroa RN Active documented as of this encounter Mental Status * Question Answer Entry Date Author Status Because of a physical, mental, or emotional condition, do you have serious difficulty concentrating, remembering, or making decisions? No 03/26/2020 5:46 PM ANDREWT Ria Figueroa RN Active * Because of a physical, mental, or emotional condition, do you have serious difficulty concentrating, remembering, or making decisions? Answer Entry Date Author Status No 03/26/2020 5:46 PM CDT Ria Figueroa RN Active documented in this encounter Plan of Treatment Upcoming Encounters Date Type Department Care Team (Late st Contact Info) Description 09/17/2025 9:30 AM CDT Office Visit [facility] [address] [place] [address] Wendy Hurst, [facility]- [address] [facility] [address] [place] [address] documented as of this encounter Results * PRE-SURGICAL/PRE-PROCEDURE CORONAVIRUS (COVID 19) (03/23/2020 9:16 AM CDT) CORONAVIRUS SARS COV 2 PCR (RESP) NOT DETECTED NOT DETECTED 03/24/2020 10:51 PM CDT [facility] Comment: A Not Detected (negative) test result for this test means that SARS- CoV-2 RNA was not present in the specimen above the limit of detection. A negative result does not rule out the possibility of COVID-19 and should not be used as the sole basis for treatment or patient management decisions. If COVID-19 is still suspected, based on exposure history together with other clinical findings, re-testing should be considered in consultation with public health authorities. Laboratory test results should always be considered in the context of clinical observations and epidemiological data in making a final diagnosis and patient management decisions. Please review the Fact Sheets and FDA authorized labeling available for health care providers and patients using the following websites: https://www.[employer]it[employer]!.com/home/Covid-19/HCP/QuestIVD/fact- sheet.html https://www.[employer]!.[employer]/home/Covid-19/Patients/ QuestIVD/fact-sheet.html This test has been authorized by the FDA under an Emergency Use Authorization (EUA) for use by authorized laboratories. Due to the current public health emergency, [facility] is receiving a high volume of samples from a wide variety of swabs and media for COVID-19 testing. In order to serve patients during this public health crisis, samples from appropriate clinical sources are being tested. Negative test results derived from specimens received in non-commercially manufactured viral collection and transport media, or in media and sample collection kits not yet authorized by FDA for COVID-19 testing should be cautiously evaluated and the patient potentially subjected to extra precautions such as additional clinical monitoring, including collection of an additional specimen. Methodology: Nucleic Acid Amplification Test (NAAT) includes PCR or TMA Additional information about COVID-19 can be found at the [facility] website: www.[employer]/Covid19. Test performed at [facility] [address] [place] [address] Director: KYUNG TOTH DO,MPH FIRST TEST YES 03/23/2020 12:[address] [facility] EMPLOYED IN HEALTHCARE UNKNOWN 03/23/2020 12:[address] [facility] SYMPTOMATIC DEFINED BY CDC UNKNOWN 03/23/2020 12:[address] [facility] DATE OF SYMPTOM ONSET UNKNOWN 03/23/2020 12:[address] [facility] HOSPITALIZATION STATUS UNKNOWN 03/23/2020 12:[address] [facility] PATIENT IN ICU UNKNOWN 03/23/2020 12:[address] [facility] RESIDENT OF [facility] NO 03/23/2020 12:[address] [facility] NOT 03/23/2020 12:[address] [facility] PATIENT'S RACE WHITE OR 03/23/2020 12:[address] [facility] ETHNICITY NONHISPANIC 03/23/2020 12:[address] [facility] SOURCE (QST) NASOPHARYNGEAL SWAB 03/23/2020 11:[address] [facility] NASOPHARYNGEAL SWAB / Unknown 03/23/2020 9:16 AM CDT us Christopher Duran MD MICROBIOLOGY - GENERAL ORDER VI Final Result [facility] [address] [place] [address], [facility] [address] [place] [address], documented in this encounter Visit Diagnoses Diagnosis Preoperative testing- Primary Preoperative examination, unspecified documented in this encounter Care Teams Fagot Maker Relationship Specialty Start Date End Date Shelby Alonzo PA-C [address] [facility] [address] [place] [address] PCP - General NURSE PRACTITIONER 03/16/19 Ky Land MD [place] Autotransfusionist INTERVENTIONAL CARDIOLOGY 11/30/17 Wendy Hurst, ANP- [address] [facility] [address] [place] [address] CARDIOVASCULAR DISEASE 11/30/17 documented as of this encounter
--- OUTSIDE RECORDS SUMMARY | 2025-05-18 10:48 | XMS_ITS | Encounter Summary ---
Author Organization [facility] Address [facility] [place] [facility] [place] [address] Care Team Providers Care Scholarship Counselor Name Role Phone Emery Callejas MD, [place] Unavailable [phone] Wendy Hurst- Unavailable [phone] Shelby Alonzo PA-C Primary Care Provider [phone] Encounter Details Date Type Department Care Team (Latest Contact Info) Description 03/15/2020 City Gradet Message Enc [facility] - [address], [address] [place] [address] Christopher Duran MD [address] [place] [address] RE: Test Results Social History Tobacco Use Types Packs/Day Years [...] have Coronavirus / COVID-19? No / Unsure 03/18/2020 11:00 AM CDT documented as of this encounter Functional Status * RETIRED Are you deaf or do you have serious difficulty hearing Answer Date of Assessment Author Status No 10/23/2018 11:46 AM CDT Acti ve * RETIRED Are you blind or do you have serious difficulty seeing, even when wearing glasses? Answer Date of Assessment Author Status No 10/23/2018 11:46 AM CDT Acti ve * Do you have serious difficulty walking or climbing stairs? Answer Date of Assessment Author Status No 10/23/2018 11:46 AM CDT Almita Abdi RN Active * Do you have difficulty dressing or bathing? Answer Date of Assessment Author Status No 10/23/2018 11:46 AM CDT Almita Abdi RN Active * Because of a physical, mental, or emotional condition, do you have difficulty doing errands alone such as visiting a doctor's office or shopping? Answer Date of Assessment Author Status No 10/23/2018 11:46 AM CDT Almita Abdi RN Active documented as of this encounter Mental Status * Because of a physical, mental, or emotional condition, do you have serious difficulty concentrating, remembering, or making decisions? Answer Entry Date Author Status No 10/23/2018 11:46 AM CDT Almita Abdi RN Active documented in this encounter Plan of Treatment Upcoming Encounters Date Type Department Care Team (Late st Contact Info) Description 09/17/2025 9:30 AM CDT Office Visit [facility] [place] [phone] Wendy Hurst, ANP- [address] [address] documented as of this encounter Visit Diagnoses Not on filedocumented in this encounter Additional Health Concerns Infection Onset Date Last Indicated Resolved Time COVID-19 Rule Out 03/23/2020 03/23/2020 03/24/2020 10:51 PM CDT documented as of this encounter Care Teams Scholarship Counselor Relationship Specialty Start Date End Date Shelby Alonzo PA-C [address] [facility] [address] [place] [address] PCP - General NURSE PRACTITIONER 03/16/19 Ky Land MD [place] Therapy Manager INTERVENTIONAL CARDIOLOGY 11/30/17 Wendy Hurst, ASYA- [address] [facility] [address] [place] [address] CARDIOVASCULAR DISEASE 11/30/17 documented as of this encounter
--- OUTSIDE RECORDS SUMMARY | 2025-05-18 10:48 | XMS_ITS | Encounter Summary ---
Author Organization [facility] Address [address] [place] [address] Care Team Providers Care Warehouse Shipping Associate Name Role Phone Hector Dick MD Primary Care Provider [phone] Emery Callejas MD, [place] Unavailable [phone] Wendy Hurst ANP-BC Unavailable [phone] Shelby Alonzo PA-C Primary Care Provider [phone] Encounter Details Date Type Department Care Team (Late st Contact Info) Description 01/14/2016 Abstract [facility] CONVERSION [address] [place] [address] , Lila Carrion MD Social History Tobacco Use Types Packs/Day Years Used Date Smoking Tobacco: Never Assessed Comments Unknown Sex and Gender Information Value Date Recorded Sex Assigned at Female 09/18/2024 9:42 AM CDT Legal Sex Female 8:20 AM CDT Gender Identity Not on file Sexual Orientation Not on file documented as of this encounter Plan of Treatment Upcoming Encounters Date Type Department Care Team (Late st Contact Info) Description 09/17/2025 9:30 AM CDT Office Visit [facility] [place] [address] Wendy Hurst, ANP-BC [address] [facility] [address] [place] [phone] documented as of this encounter Visit Diagnoses Not on filedocumented in this encounter Additional Health Concerns Infection Onset Date Last Indicated Resolved Time COVID-19 Rule Out 03/23/2020 03/23/2020 03/24/2020 10:51 PM CDT documented as of this encounter Care Teams Warehouse Shipping Associate Relationship Specialty Start Date End Date Hcetor Dick MD PCP - General INTERNAL MEDICINE 01/10/16 03/15/19 Shelby Alonzo PA-C [address] [place] [address] [phone] PCP - General NURSE PRACTITIONER 03/16/19 Ky Land MD [place] Butadiene Converter Utility Operator INTERVENTIONAL CARDIOLOGY 11/30/17 Wendy Hurst, ANP- [address] [place] [address] [phone] CARDIOVASCULAR DISEASE 11/30/17 documented as of this encounter
--- OUTSIDE RECORDS SUMMARY | 2025-05-18 10:48 | XMS_ITS | Encounter Summary ---
Author Organization [facility] Address [facility] [place] [address] Care Team Providers Care Truck Spotter Name Role Phone Hector Dick MD Primary Care Provider [phone] Emery Callejas MD, [place] Unavailable [phone] Wendy Hurst ANP- Unavailable [phone] Shelby Alonzo PA-C Primary Care Provider [phone] Encounter Details Date Type Department Care Team (Late st Contact Info) Description 10/28/2018 Hospital Follow-up Call [facility] Telemetry [address] [place], [place] [phone] Abeba Hernandez Social History Tobacco Use Types Packs/Day Years Used Date Smoking Tobacco: Never Smokeless Tobacco: Never Alcohol Use Standard Drinks/Week Comments No 0 (1 standard drink = 0.6 oz pur e alcohol) Comments Unknown Sex and Gender Information Value Date Recorded Sex Assigned at Female 09/18/2024 9:42 AM CDT Legal Sex Female 8:20 AM CDT Gender Identity Not on file Sexual Orientation Not on file documented as of this encounter Functional Status [...] Assessment Author Status No 10/23/2018 11:46 AM ANDREWT Almita Abdi RN Active documented as of [...] Description 09/17/2025 9:30 AM CDT Office Visit [facility] [place] [address] Wendy Hurst, ANP- [address] [address] documented as of this encounter Visit Diagnoses Not on filedocumented in this encounter Additional Health Concerns Infection Onset Date Last Indicated Resolved Time COVID-19 Rule Out 03/23/2020 03/23/2020 03/24/2020 10:51 PM CDT documented as of this encounter Care Teams Truck Spotter Relationship Specialty Start Date End Date Hector Dick MD PCP - General INTERNAL MEDICINE 01/10/16 03/15/19 Shelby Alonzo PA-C [address] [address] PCP - General NURSE PRACTITIONER 03/16/19 Ky Land MD [place] [employer] Rater INTERVENTIONAL CARDIOLOGY 11/30/17 Wendy Hurst [facility]- [address] [facility] [address] [phone] CARDIOVASCULAR DISEASE 11/30/17 documented as of this encounter
--- OUTSIDE RECORDS SUMMARY | 2025-05-18 10:48 | XMS_ITS | Clinical Summary ---
Author Organization [facility] Address [address] 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
--- OUTSIDE RECORDS SUMMARY | 2025-05-18 10:48 | XMS_ITS | Clinical Summary ---
Author Organization [facility] Address [address] [place] [address] Care Team Providers Care Executive Chef Assistant Name Role Phone Hector Dick MD Primary Care Provider [phone] Fabiana Bean Unavailable [phone] Allergies No known active allergies Medications clopidogrel [...] 1 9 Active cyanocobalamin/foli c acid (VITAMIN V38-UEIZK ACID) 1,000-400 mcg tablet, sublingualIndicatio ns:Vitamin Deficiency Prevention Place 2,500 mcg under the tongue distribution transformer assembler before breakfast Active cholecalciferol (VITAMIN D-3) 3,000 unit tabletIndications:V itamin D Deficiency Take 0.6667 tablets (2,000 Units total) by mouth distribution transformer assembler before breakfast 0 Active metoprolol XL (TOPROL-XL) [...] needed for pain 40 tablet 4 Active Hospital, Clinic, or Other Facility Administered Medication Ordered Dose Route Frequency Start Date End Date Status lidocaine (XYLOCAINE) 10 mg/mL (1 %) injection 1 mLIndications:Admini stration of Local Anesthesia 1 mL One-Time Injection 05/14/2025 5 Ended methylPREDNISolone acetate (DEPO-medrol) injection 40 mgIndications:Primar y osteoarthritis of left knee 40 mg intra-artic One-Time Injection 05/14/2025 5 Ended Active Problems Problem Noted Date Diagnosed Date Orthopedic aftercare 01/07/2024 Complex tear of medial menis cus of left knee as current injury 12/15/2023 Acute internal derangement of left knee 11/22/19 24 Dyspnea on exertion 05/18/2022 Ectopic atrial tachycardia 05/18/2022 Back complaints 06/02/2021 Carotid artery disease 06/02/2021 Sciatica 03/11/2021 Failure of left total hip arthroplasty 1 Overview (09/27/2020): Added automatically from request for surgery [id number] Status post total right knee replacement 020 Primary osteoarthritis of right knee 09/08/2019 Overview (09/08/2019): Added automatically from request for surgery [id number] Ischemic stroke 10/23/2018 Dyslipidemia 01/31/2018 Obesity (BMI 30-39.9) 01/31/2018 Palpitation 01/31/2018 Low back pain 03/26/2015 Resolved Problems Problem Noted Date Diagnosed Date Resolved Date Status post total hip replacement, right 03/26/2020 06/26/2022 Encounters Date Type Department Care Team Description 05/14/2025 8:15 AM NEW ACCOUNTS CLERK Office Visit [facility] Orthopedics and Sports Medicine [address] [place] [phone] Faraz Villegas MD Primary osteoarthritis of [...] on file Legal Sex Female 12:56 PM NEW ACCOUNTS CLERK Gender Identity Not on file Sexual Orientation [...] - - Weight 106.6 kg (235 lb) 05/14/2025 7:54 AM NEW ACCOUNTS CLERK Height 167.6 cm (5' 6) 05/14/2025 7:54 AM NEW ACCOUNTS CLERK Body Mass Index 37.93 05/14/2025 7:54 AM NEW ACCOUNTS CLERK Plan of Treatment Health Maintenance Due Date Last Done Comments Colon Cancer Screening-Colonoscopy 1950 Depression Screening 1950 Hepatitis C Screening 1950 DTaP/Tdap/Td Vaccine (1 - Tdap) 1963 Hepatitis B Screening 1970 Well Visit 65+ 2017 Fall Risk Assessment 12/22/2024 12/23/2023 Covid-19 Vaccine (4 - 2024-2 6 season) 2025 05/12/2021, 09/05/2020, 08/08/2020 Influenza Vaccine (#1) 2025 4, 04/27/2023, 04/21/2022, Additional history exists Breast Cancer Screening-Mammogram 09/20/2025 09/20/2024, 09/20/2024, 09/20/2023, Additional history exists Osteoporosis Screening-Bone Density Scan 08/15/2026 08/15/2024, 12/03/2021 Pneumococcal vaccine 65+ Completed 10/07/2022, 04/12 Zoster Vaccine Completed 10/07/2022, 08/09/2022 Medical Devices Implanted Type Area Heel Seat Pounder Device Identifier Shelf Expiration Date Model / Serial / Lot [employer] [id number] Trilogy 6.5mm 20mm Self Tap Screw Bone - [id number] Implanted:Qty: 1 on 11/06/2020 by Saqib Valle MD at [facility] Left: Hip [employer] [id number] 10/09/2029 [id number] / / [id number] [employer] [id number] Trilogy 6.5mm 20mm Self Tap Screw Bone - [id number] Implanted:Qty: 1 on 11/06/2020 by Saqib Valle MD at [facility] Left: Hip [employer] [id number] 10/09/2029 [id number] / / [id number] [employer] [id number] 46mm 2 Mobility Hip G Liner Acetabular - [id number] Implanted:Qty: 1 on 11/06/2020 by Saqib Valle MD at [facility] Left: Hip [employer] [id number] 02/25/2030 [id number] / / [id number] [employer] Pha0-1202 Profemur 10.6mm 28mm Kit N Modular Hip Neutral Short Neck Femoral - [id number] Implanted:Qty: 1 on 11/06/2020 by Saqib Valle MD at [facility] Left: Hip [employer] [id number] 12/07/2025 PHA0-1202 / / [id number] [employer] [id number] Option Hip Xlong Sleeve Femoral Titanium - [id number] Implanted:Qty: 1 on 11/06/2020 by Saqib Valle MD at [facility] Left: Hip [employer] [id number] 08/18/2027 [id number] / / [id number] [employer] [id number] Option 28mm Neck Sleeve Hip Head Femoral Titanium - [id number] Implanted:Qty: 1 on 11/06/2020 by Saqib Valle MD at [facility] Left: Hip [employer] 02/09/2027 [id number] / / Joint [employer] [id number] 1-4mm Freeze Dried Crushed Graft 30ml Bone Cancellous - [id number] Implanted:Qty: 1 on 11/06/2020 by Saqib Valle MD at [facility] Left: Hip Joint [employer] 08/09/2023 [id number] / / [id number] Joint [employer] [id number] 1-4mm Freeze Dried Crushed Graft 30ml Bone Cancellous - [id number] Implanted:Qty: 1 on 11/06/2020 by Saqib Valle MD at [facility] Left: Hip Joint [employer] 06/14/2023 [id number] / / [id number] [employer] [id number] 58mm Multihole Hip G Hemisphere Offset Shell Acetabular - [id number] Implanted:Qty: 1 on 11/06/2020 by Saqib Valle MD at [facility] Left: Hip [employer] [id number] 08/12/2030 [id number] / / [id number] [employer] [id number] Trilogy 6.5mm 40mm Self Tap Hip Acetabular Cortical Screw Bone - [id number] Implanted:Qty: 1 on 11/06/2020 by Saqib Valle MD at [facility] Left: Hip [employer] [id number] 08/14/2030 [id number] / / [id number] [employer] [id number] Trilogy 6.5mm 40mm Self Tap Hip Acetabular Cortical Screw Bone - [id number] Implanted:Qty: 1 on 11/06/2020 by Saqib Valle MD at [facility] Left: Hip [employer] [id number] 09/10/2030 [id number] / / [id number] [employer] [id number] Trilogy 6.5mm 40mm Self Tap Hip Acetabular Cortical Screw Bone - [id number] Implanted:Qty: 1 on 11/06/2020 by Saqib Valle MD at [facility] Left: Hip [employer] [id number] 08/14/2030 [id number] / / [id number] [employer] [id number] Liner Acetabular Longevity G Od46 Mm Id28 Mm Hip Lumen Sterile Latex Free - [id number] - [id number] Implanted:Qty: 1 on 11/06/2020 by Saqib Valle MD at [facility] Left: Hip [employer] [id number] 08/11/2025 [id number] / [id number] / [id number] Explanted Type Area Heel Seat Pounder Device Identifier Shelf Expiration Date Model / Serial / Lot [employer] Chrome Head 48 Explanted:Qty: 1 on 11/06/2020 by Saqib Valle MD at [facility] Left: Hip [employer] Neck Explanted:Qty: 1 on 11/06/2020 by Saqib Valle MD at [facility] Left: Hip [employer] Procedures Procedure Name Priority Date/Time Associated Diagnosis Comments NM ARTHROCENTESIS ASPIR&/INJ MAJOR JT/BURSA W/O US Routine 05/14/2025 8:15 AM NEW ACCOUNTS CLERK Primary osteoarthritis of left knee from Last 3 Months Results * NM ARTHROCENTESIS ASPIR&/INJ MAJOR JT/BURSA W/O US (05/14/2025 8:15 AM NEW ACCOUNTS CLERK) Narrative Faraz Villegas MD - 05/14/2025 8:15 AM NEW ACCOUNTS CLERK Faraz Villegas MD 2025 7:58 AM Large Joint (Hip, Knee, Shoulder) Injection: [...] lidocaine 10 mg/mL (1 %); 40 mg methylPREDNISolone acetate 40 mg/mL Patient tolerance: Patient tolerated the procedure well with no immediate complications Faraz Villegas MD IN CLINIC/BEDSIDE YONAlfredito JETT Final Result from Last 3 Months Insurance MEDICARE [facility] [employer] [place] Advance Directives For more information, please contact: [phone] * Full Code (Latest Code Status on File) Date Activated Date Inactivated Comments 11/06/2020 12:41 PM 11/07/2020 4:38 PM Care Teams Executive Chef Assistant Relationship Specialty Start Date End Date Hector Dick MD [facility] [place] [address] PCP - General Internal Medicine 08/19/20 Fabiana Bean PA [address] [facility] [address] [address] Physician Ore Buyer Orthopedic Surgery 12/23/23
--- OUTSIDE RECORDS SUMMARY | 2025-05-18 10:48 | XMS_ITS | Encounter Summary ---
Author Organization [facility] Address [address] [place] [address] Care Team Providers Care Senior Oracle Adf Developer Name Role Phone Hector Dick MD Primary Care Provider [phone] Emery Callejas MD, [place] Unavailable [phone] Wendy Hurst ANP-BC Unavailable [phone] Shelby Alonzo PA-C Primary Care Provider [phone] Encounter Details Date Type Department Care Team (Late st Contact Info) Description 10/17/2013 Abstract [facility] CONVERSION [address] [place] [address] , Lila Carrion MD Social [...] Description 09/17/2025 9:30 AM CDT Office Visit [facility] [place] [phone] Wendy Hurst, ANP-BC [address] [facility] [address] [place] [phone] documented as of this encounter Visit Diagnoses Not on filedocumented in this encounter Additional Health Concerns Infection Onset Date Last Indicated Resolved Time COVID-19 Rule Out 03/23/2020 03/23/2020 03/24/2020 10:51 PM CDT documented as of this encounter Care Teams Senior Oracle Adf Developer Relationship Specialty Start Date End Date Hector Dick MD PCP - General INTERNAL MEDICINE 01/10/16 03/15/19 Shelby Alonzo PA-C [address] [place] [address] [phone] PCP - General NURSE PRACTITIONER 03/16/19 [place] Land MD [place] Contamination Consultant INTERVENTIONAL CARDIOLOGY 11/30/17 Wendy Hurst, ANP- [address] [place] [address] [phone] CARDIOVASCULAR DISEASE 11/30/17 documented as of this encounter
--- OUTSIDE RECORDS SUMMARY | 2025-05-18 10:48 | XMS_ITS | Encounter Summary ---
Author Organization [facility] Address [facility] [place] [address] Care Team Providers Care Supervisor Powdered Sugar Name Role Phone Hector Dick MD Primary Care Provider [phone] Emery Callejas MD, [place] Unavailable [phone] Wendy Husrt ANP- Unavailable [phone] Shelby Alonzo PA-C Primary Care Provider [phone] Encounter Details Date Type Department Care Team (Late st Contact Info) Description 10/28/2018 Hospital Follow-up Call [facility] Telemetry Unit [address] [place], [place] [phone] Abeba Hernandez Social History Tobacco Use Types [...] Description 09/17/2025 9:30 AM CDT Office Visit [facility] [place] [address] Wendy Hurst, ANP- [address] [address] documented as of this encounter Visit Diagnoses Not on filedocumented in this encounter Additional Health Concerns Infection Onset Date Last Indicated Resolved Time COVID-19 Rule Out 03/23/2020 03/23/2020 03/24/2020 10:51 PM CDT documented as of this encounter Care Teams Supervisor Powdered Sugar Relationship Specialty Start Date End Date Hector Dick MD PCP - General INTERNAL MEDICINE 01/10/16 03/15/19 Shelby Alonzo PA-C [address] [address] PCP - General NURSE PRACTITIONER 03/16/19 [place] Land MD [place] Cloth Examiner Machine INTERVENTIONAL CARDIOLOGY 11/30/17 Wendy Hurst [facility]- [address] [facility] [address] [phone] CARDIOVASCULAR DISEASE 11/30/17 documented as of this encounter
--- OUTSIDE RECORDS SUMMARY | 2025-05-18 10:48 | XMS_ITS | Encounter Summary ---
Author Organization [facility] Address [address] [place] [address] Care Team Providers Care Poultry Husbandry Worker Name Role Phone Hector Dick MD Primary Care Provider [phone] Emery Callejas MD, [place] Unavailable [phone] Wendy Hurst ANP-BC Unavailable [phone] Shelby Alonzo PA-C Primary Care Provider [phone] Encounter Details Date Type Department Care Team (Late st Contact Info) Description 01/14/2017 Abstract [facility] CONVERSION [address] [place] [address] , Lila Carrion MD Social [...] Description 09/17/2025 9:30 AM CDT Office Visit [facility] [place] [address] Wendy Hurst, ANP-BC [address] [facility] [address] [place] [phone] documented as of this encounter Visit Diagnoses Not on filedocumented in this encounter Additional Health Concerns Infection Onset Date Last Indicated Resolved Time COVID-19 Rule Out 03/23/2020 03/23/2020 03/24/2020 10:51 PM CDT documented as of this encounter Care Teams Poultry Husbandry Worker Relationship Specialty Start Date End Date Hector Dick MD PCP - General INTERNAL MEDICINE 01/10/16 03/15/19 Shelby Alonzo PA-C [address] [place] [address] [phone] PCP - General NURSE PRACTITIONER 03/16/19 [place] Land MD [place] Dust Mixer INTERVENTIONAL CARDIOLOGY 11/30/17 Wendy Hurst, ANP- [address] [place] [address] [phone] CARDIOVASCULAR DISEASE 11/30/17 documented as of this encounter
--- OUTSIDE RECORDS SUMMARY | 2025-05-18 10:48 | XMS_ITS | Encounter Summary ---
Author Organization [facility] Address [address] [place] [address] Care Team Providers Care Admissions Advisor Name Role Phone Emery Callejas MD, [place] Unavailable [phone] Wendy Hurst- Unavailable [phone] Shelby Alonzo PA-C Primary Care Provider [phone] Encounter Details Date Type Department Care Team (Late st Contact Info) Description 03/24/2020 Oneexchangestreett Message Enc [facility] Multispecialty Care - [facility] [address] [facility] [place] [address] Christopher Duran MD [address] [place] [id number] Other Social History Tobacco Use Types Packs/Day Years [...] dressing or bathing? No 03/26/2020 5:46 PM ANDREWT Ria Figueroa RN Active Because of a physical, mental, or emotional condition, do you have difficulty doing errands alone such as visiting a doctor's office or shopping? No 03/26/2020 5:46 PM ANDREWT Ria Figueroa RN Ac tive * RETIRED [...] 11:46 AM ANDREWT Almita Abdi RN Active * Do you have difficulty dressing or bathing? Answer Date of Assessment Author Status No 10/23/2018 11:46 AM ANDREWT Almita Abdi RN Active * Because of [...] Abdi RN Active documented in this encounter Progress Notes * Jessica Dietrich RN - 03/26/2020 10:40 AM CDT Spoke to patient about thigh pain and surgery. documented in this encounter Plan of Treatment Upcoming Encounters Date Type Department Care Team (Late st Contact Info) Description 09/17/2025 9:30 AM CDT Office Visit [facility] [place] [phone] Wendy Hurst ANP-BC [address] [place] [address] documented as of this encounter Visit Diagnoses Not on filedocumented in this encounter Additional Health Concerns Infection Onset Date Last Indicated Resolved Time COVID-19 Rule Out 03/23/2020 03/23/2020 03/24/2020 10:51 PM CDT documented as of this encounter Care Teams Admissions Advisor Relationship Specialty Start Date End Date Shelby Alonzo PA-C [address] [place] [address] PCP - General NURSE PRACTITIONER 03/16/19 [place] Land MD [place] High Density Finishing Operator INTERVENTIONAL CARDIOLOGY 11/30/17 Wendy Hurst ANP-BC [address] [phone] CARDIOVASCULAR DISEASE 11/30/17 documented as of this encounter
--- OUTSIDE RECORDS SUMMARY | 2025-05-18 10:48 | XMS_ITS | Encounter Summary ---
Author Organization [facility] Address [facility] [place] [address] Care Team Providers Care Hand Sole Sewer Name Role Phone Hector Dick MD Primary Care Provider [phone] Emery Callejas MD, [place] Unavailable [phone] Wendy Hurst ANP- Unavailable [phone] Shelby Alonzo PA-C Primary Care Provider [phone] Encounter Details Date Type Department Care Team (Late st Contact Info) Description 10/28/2018 Home Care Visit [facility] [place] [address] Abeba Hernandez Social History Tobacco Use Types [...] Date Author Status No 10/23/2018 11:46 AM ANDREWT Almita Abdi RN Active documented in this encounter Plan of Treatment Upcoming Encounters Date Type Department Care Team (Late st Contact Info) Description 09/17/2025 9:30 AM CDT Office Visit [facility] [place] [phone] Wendy Hurst, ANP- [address] [address] documented as of this encounter Visit Diagnoses Not on filedocumented in this encounter Additional Health Concerns Infection Onset Date Last Indicated Resolved Time COVID-19 Rule Out 03/23/2020 03/23/2020 03/24/2020 10:51 PM CDT documented as of this encounter Care Teams Hand Sole Sewer Relationship Specialty Start Date End Date Hector Dick MD PCP - General INTERNAL MEDICINE 01/10/16 03/15/19 Shelby Alonzo PA-C [address] [phone] PCP - General NURSE PRACTITIONER 03/16/19 Ky Land MD [place] Major Sales Associate INTERVENTIONAL CARDIOLOGY 11/30/17 Wendy Hurst, [facility]- [address] [facility] [address] [place] [phone] CARDIOVASCULAR DISEASE 11/30/17 documented as of this encounter
== END 2025-05-18 10:04 | disposition home or self-care (01) ==
PROVIDERS: PCP Physician Assistant Medical; Visit Provider Orthopaedic Surgery
DX: M19.011 Primary osteoarthritis, right shoulder (principal); G89.29 Other chronic pain
CPT/HCPCS: 73030